=== PATIENT | female | born 1970 | race African-American/Black ===

== ENCOUNTER 2016-05-06 14:59 | Inpatient (IN) ==
--- NOTE | 2016-05-06 17:05 | EKG Report ---
Stationary ECG Study [facility] ER Test Date: 05/06/2016 5:04:14 PM Pat Name: DULCE LÓPEZ Department: Room: Gender: F Respiratory Care Specialist: : 1970 Requested by: Jack Barros Order Number: [id number] Reading MD: ELIZA PILLAI Intervals [place] Rate: 91 P: 28 WY: 168 QRS: 66 QRSD: 74 T: 64 QT: 358 QTc: 407 Interpretive Statements SINUS RHYTHM POSSIBLE LEFT ATRIAL ENLARGEMENT Electronically Signed On 05-07-16 21:57:02 PRODUCT INFO SPECIALIST by ELIZA PILLAI [email or web address]
[2016-05-06 17:11] LABS: Albumin 3.6 G/DL (3.4-5.0); Bilirubin,Total 0.6 MG/DL (0.2-1.0); Calcium 8.8 MG/DL (8.5-10.1); Magnesium 2.2 MG/DL (1.8-2.4); Osmolality,Calculated 282.8 MOS/KG (273-304); Potassium 4.1 MMOL/L (3.5-5.1)
--- NOTE | 2016-05-06 17:11 | XRay Report ---
Exam: XR chest 2V Indication: Shortness of breath, multifocal pneumonia Comparison study: 04/22/2014 Findings: Slight improved aeration is noted within the right upper lobe when compared to prior. However, there are still patchy perihilar and basilar interstitial airspace opacities noted which may represent a degree of pulmonary edema versus multifocal infectious/inflammatory infiltrates and basilar atelectasis. A small right pleural effusion is also suspected. There is no pneumothorax. Cardiac silhouette appears stable from prior. Impression: Slight improved aeration within the right upper lobe as compared to prior. Residual perihilar and basilar interstitial airspace opacities are nonspecific and may represent atelectasis although residual or recurrent multifocal infectious/inflammatory infiltrates remain a consideration. Small right pleural effusion also suspected. PROCEDURE INTERPRETED AT [facility] DEPARTMENT OF RADIOLOGY Final Report Signed by: Erwin Nur
[2016-05-06 17:36] LABS: Basophils % 0.3 % (0.0-0.8); Hematocrit 22.9 VOL% (35.7-47.0); Immature Granulocytes % 0.3 %; Immature Granulocytes Absolute 0.01 #; Lymphocytes % 27.7 % (21.3-54.2); Mean Corpuscular HGB Conc 23.6 GM/DL (32-36); Mean Corpuscular Hemoglobin 15 PG (27-34); Mean Corpuscular Volume 63.1 FL (87-102); Monocytes # 0.3 10*3/uL (0.11-0.8); Monocytes % 7.8 % (1.7-12.7); Neutrophils # 2.3 10*3/uL (1.4-7.4); Neutrophils % 63.9 % (38.7-73.9); Platelet Count 251 T/CUMM (130-400); Red Blood Count 3.63 MC/CUMM (3.8-5.5); Red Cell Distribution Width 25.2 % (9.3-17.3); White Blood Count 3.6 T/CUMM (4-12)
[2016-05-06 17:42] LABS: Hemoglobin 5.4 GM/DL (12.0-16.0)
--- NOTE | 2016-05-06 18:01 | Emergency Department Note ---
Silvina Pearson Brittany, am scribing for, and in the presence of, Jack Nash MD 16:38. Saad Pearson Phillip K, MD, personally performed the services described in this documentation, ascribed by Cindy Cool in my presence, and it is both accurate and complete [id number] . Arrival - Arrival Chief Complaint: Shortness of Breath Stated Complaint: swelling feet , sob, dry cough ED Nursing Triage Note: SOB, BLE edema, dry cough onset yesterday. Unable to lay flat. Mode of Arrival: Ambulatory Limitations: No Limitations Source: Patient Time Seen by Provider: 05/06/16 16:09 - History of Present Illness HPI Narrative: This is a 45 y/o black female,who presents to the ED with c/o dyspnea which started last night. She states she has had a dry cough for the past few days. She has had a low grade fever as well. She reports the SOB is worse when she lays down. Pt also complains of welling in both ankles. Pt has no other complaints/pain in the ED at this time. Pt has a PMHx of HTN and thyroid disorder. Pt denies a surgical Hx. Pt denies a family medical Hx. Pt denies a social Hx. patient has had a blood transfusion approximately 15 years ago according to her. Patient denies eating ronnie. Onset (ago): hour(s) (Started last night) Consistency: constant Severity: moderate Allergies/Adverse Reactions: Allergies Allergy/AdvReac Type Severity Reaction Status Date / Time No Known Allergies Allergy Unverified 05/06/16 15:26 Home Medications: Home Medications Medication Instructions Recorded Confirmed Type Metoprolol Tartrate 25 mg PO BID 05/06/16 05/06/16 History methIMAzole [Methimazole] 5 mg PO BID 05/06/16 05/06/16 History Review of System - Review of System 12 point system: reviewed and no additional remarkable complaints except as stated - Review of System Constitutional: Present: fever (Low grade fever) Respiratory: Present: cough (Dry cough ) Cardiovascular: Present: orthopnea, other (Dyspnea) Additional ROS comments: Swelling in the ankles Medical,Surgical,& Family Hx - Medical History Cardio: History of: Hypertension Endocrine: History of: Thyroid Disorder - Social History Smoking Status: Never smoker Frequency of Alcohol Use: Unknown Type of Drug Use: Unknown Exam Vital Signs: Vital Signs Temperature 99.1 F 05/06/16 16:16 Pulse Rate 97 H 05/06/16 17:39 Respiratory Rate 31 H 05/06/16 17:39 Blood Pressure 143/85 05/06/16 17:39 O2 Sat by Pulse Oximetry 99 05/06/16 17:39 - General General appearance: alert, in no apparent distress - Head Head exam: Present: atraumatic, normocephalic, normal inspection - Eye Eye exam: Present: other (Pale conjunctivia ) - ENT ENT exam: Present: other (Pale mucous membranes) - Neck Neck exam: Present: normal inspection, full ROM, trachea midline. Absent: tenderness, meningismus, lymphadenopathy, thyromegaly - Chest Chest inspection: Present: normal inspection, symmetric chest wall rise. Absent : tenderness, rash, abscess - Respiratory Respiratory exam: Present: rales (Bilateral Rales worse on the right), respiratory distress (mild) - Cardiovascular Cardiovascular exam: Present: normal rhythm, tachycardia, normal heart sounds. Absent: murmur, rubs, gallop, clicks, JVD - Abdominal Exam Abdominal exam: Present: soft, normal bowel sounds. Absent: distention, tenderness, guarding, rebound, rigidity - Rectal Exam Rectal exam: Present: deferred - Extremities Exam Extremities exam: Present: pedal edema (Trace of edema to the lower exremities) - Back Exam Back exam: Present: normal inspection, full ROM. Absent: tenderness, muscle spasm, rashes - Neurological Exam Neurological exam: Present: alert, oriented X3, CN II-XII intact. Absent: motor sensory deficit - Psychiatric Psychiatric exam: Present: normal affect, normal mood. Absent: depressed, agitated, anxious, flat affect, manic - Skin Skin exam: Present: warm, dry, intact, normal color. Absent: rash, cyanosis, diaphoresis, erythema, pallor, mottled Course Course Narrative: Patient discussed with the hospitalist who will admit for transfusion and further evaluation. Results - Labs CBC & BMP: 05/06/16 17:30 05/06/16 16:47 Lab Results: I have reviewed the patients labs Labs: Laboratory Tests 05/06/16 05/06/16 16:47 17:30 WBC 3.6 L RBC 3.63 L Hgb 5.4 L* Hct 22.9 L MCV 63.1 L MCH 15 L MCHC 23.6 L RDW 25.2 H Lymph # (Auto) 1.0 L Chloride 113 H Creatinine 0.50 L Albumin/Globulin Ratio 1.0 L - EKG EKG results: interpreted by ERMD, WNL, sinus rhythm - Diagnostic Findings Procedure: Chest x-ray: report reviewed by me (Slight improved aeration within the right upper lobe as compared to prior. Residual perihilar and basilar intersitital airspace opacities are nonspecific and may represent atelectasis although residual or recurrent multifocal infectious/inflammatory infiltrates remain a consideration. Small right pleural effusion also suspected. ) Disposition Clinical Impression: Community acquired pneumonia, Anemia, Dyspnea Case discussed with: patient Disposition: Still a Patient Condition: Guarded Additional Instructions: Admit to the hospitalist.
[2016-05-06] MEDS ORDERED: ONDANSETRON 4 MG/2 ML VIAL IV PRN (18:22)
[2016-05-06] MEDS ORDERED: ACETAMINOPHEN 325 MG TABLET PO PRN ×2 (18:22→18:27)
[2016-05-06] MEDS ORDERED: ZALEPLON 5 MG CAPSULE PO PRN (18:22)
[2016-05-06] MEDS ORDERED: ALBUTEROL 2.5 MG/3 ML NEB RESP TX PRN (18:22)
[2016-05-06] MEDS ORDERED: SODIUM CHLORIDE 0.9% 250 ML IV PRN (18:27)
[2016-05-06] MEDS ORDERED: FUROSEMIDE 20 MG/2 ML VIAL IV PRN (18:27)
[2016-05-06] MEDS ORDERED: diphenhydrAMINE CAP 25 MG CAPSULE PO PRN (18:27)
[2016-05-06] MEDS ORDERED: METOPROLOL TARTRATE 5 MG/5 ML VIAL IV STA (18:29)
[2016-05-06] MEDS ORDERED: ENOXAPARIN 40 MG/0.4 ML SYRINGE SUBCUT SCH (18:30)
[2016-05-06] MEDS ORDERED: LEVOFLOXACIN INJ 750 MG in PREMIX 1 EACH IV SCH (18:30)
--- NOTE | 2016-05-06 18:32 | Hospitalist History & Physical ---
Assessment and Plan - Time spent with patient Time spent with patient: Greater than 30 minutes (1) Sepsis Status: Acute Assessment and plan: Secondary to RLL pneumonia. Patient with low-grade fever, tachycardia, tachypnea, and rest x-ray suggestive of right lower lobe infiltrate. She's had a cough and shortness of breath 2 days. She is being treated with IV Levaquin and DuoNeb's. Consider steroids. Current Visit: Yes Qualifiers: Sepsis type: sepsis due to unspecified organism Qualified Code(s): A41.9 - Sepsis, unspecified organism (2) Community acquired pneumonia Status: Acute Assessment and plan: Patient with acute right lower lobe pneumonia with cough low-grade fever and tachypnea and tachycardia. She also has symptomatic anemia which is contributing to some of her symptoms. She'll be started on IV Levaquin as well as duo nebs. Consider steroids. And cough medication for symptom relief. Add pro calcitonin level. Current Visit: Yes (3) Anemia Status: Acute Assessment and plan: Acutely symptomatic with tachycardia and tachypnea. This is likely multifactorial and related to her pneumonia as well. Her hemoglobin is 5.4. She'll be transfused 2 units of packed red blood cells with repeat H&H in a.m. She gives a history of anemia but has not been taking iron supplementation. Routine anemia labs have been ordered and are pending. Current Visit: Yes Qualifiers: Anemia type: unspecified type Qualified Code(s): D64.9 - Anemia, unspecified (4) Hyperthyroidism Status: Chronic Assessment and plan: Patient on methimazole. Labs have been ordered. Unclear if some of her symptoms are related to hyperthyroidism including her tachycardia and hypertension. Current Visit: Yes (5) HTN (hypertension) Status: Chronic Assessment and plan: Continue beta florina and monitor blood pressure Current Visit: Yes Qualifiers: Hypertension type: essential hypertension Qualified Code(s): I10 - Essential (primary) hypertension (6) Dyspnea Status: Acute Current Visit: Yes History of Present Illness Chief complaint: Shortness of breath History of present illness: Ms. Cage is a 45 year old female who presented to the emergency department today with shortness of breath and cough. She reports her symptoms began yesterday. She felt like her feet were swollen. She was having difficulty breathing. She was found to have a low-grade fever in the emergency department. During the course of her evaluation and workup she was found to have right lower lobe pneumonia as well as severe anemia with a hemoglobin of 5. The patient reports a history of anemia but has not been taking any iron supplements. She denies any blood in her stools, hemoptysis or hematochezia. A Hemoccult was done in the emergency department and was negative. Patient is being admitted to the hospitalist service for symptomatic anemia with tachycardia as well as right lower lobe pneumonia with tachycardia and tachypnea and low-grade fever. The patient has signs and symptoms consistent with a diagnosis of sepsis secondary to pneumonia with an unknown organism. IV antibiotics have been started. The patient has not had any sick contacts. She has no recent hospitalizations. She has not been on any antibiotics recently. She denies any fever or chills at home. She reports her symptoms are sudden in onset and worsening. She reports some chest pain with cough that's generalized. She denies any syncope or anginal symptoms. Home Medications Medication Instructions Recorded Confirmed Type Metoprolol Tartrate 25 mg PO BID 05/06/16 05/06/16 History methIMAzole [Methimazole] 5 mg PO BID 05/06/16 05/06/16 History Allergies Allergy/AdvReac Type Severity Reaction Status Date / Time No Known Allergies Allergy Unverified 05/06/16 15:26 Medical,Surgical,& Family Hx - Medical History Cardio: History of: Hypertension Endocrine: History of: Thyroid Disorder - Surgical History Additional Surgical History: Denies surgeries - Family History Additional Family History: denies any FH - Social History Smoking Status: Never smoker Have you smoked in the last 12 months: No Frequency of Alcohol Use: Unknown Type of Drug Use: Unknown Functional capacity: independent ambulation 12 point system: reviewed and no additional remarkable complaints except as stated - Constitutional Constitutional: Present: as per HPI - Respiratory Respiratory: Present: cough, dyspnea, dyspnea on exertion, pain on inspiration Exam - Constitutional Vitals: Period Temp Pulse Resp BP Sys/Jack Pulse Ox Last 24 Hr 99.1 F-99.1 F 92-102 18-31 133-149/69-86 98-100 General appearance: normal weight, mild distress - Head Head exam: Present: normal inspection, normocephalic, atraumatic - Eye Eye exam: Present: EOMI Pupils: Present: JONATHON - ENT ENT exam: Present: normal exam, normal oropharynx - Neck Neck exam: Present: normal inspection. Absent: lymphadenopathy, tenderness - Respiratory Respiratory exam: Present: rhonchi (RLL) - Cardiovascular Cardiovascular exam: Present: tachycardia. Absent: diastolic murmur - GI/Abdominal GI/Abdominal exam: Present: normal bowel sounds, soft. Absent: tenderness, rebound - Extremities Exam Extremities exam: Absent: edema - Neurological Exam Neurological exam: Present: alert, oriented X3, CN II-XII intact - Psychiatric Psychiatric exam: Present: normal affect, anxious - Skin Skin exam: Present: normal color, warm, dry, pallor Results - Labs CBC & BMP: 05/06/16 17:30 05/06/16 16:47 Lab Results: I have reviewed the past 24 hour labs - Diagnostic Findings Procedure: Chest x-ray: image reviewed by me, report reviewed by me Sepsis - Sepsis Classification of Sepsis: Sepsis Possible / Suspected infection from: pneumonia - Physical Exam Respiratory exam: rhonchi Capillary Refill: Less Than 3 Seconds Peripheral pulses: Dorsalis Pedis (L) PM: 2+, Dorsalis Pedis (R) PM: 2+ Cardiovascular exam: tachycardia Skin exam: normal color
[2016-05-06] MEDS ORDERED: guaiFENesin/CODEINE 5 ML LIQUID PO PRN (18:39)
[2016-05-06 18:40] LABS: Eosinophils 1 % (0-10); Lymphocytes 26 % (20-55); Platelet Estimate Normal; Polychromasia Slight; Segmented Neutrophils 73 % (50-85); Total Cells Counted 100
[2016-05-06 18:41] LABS: Elliptocytes 1+; Hypochromasia 2+; Poikilocytosis 1+
[2016-05-06 18:43] LABS: Acanthocytes Few
[2016-05-06 19:07] LABS: Folate 14.1 NG/ML (5.4-24.0)
[2016-05-06 19:15] LABS: Ferritin 7.4 ng/ml (8-252)
[2016-05-06] MEDS: ALBUTEROL/IPRATROPIUM 3 ML NEB RESP TX SCH (21:14)
[2016-05-06 21:17] LABS: HIV Antigen/Antibody Result Nonreactive (Nonreactive)
[2016-05-06] MEDS: methIMAzole 5 MG TABLET PO SCH (22:23)
[2016-05-06] MEDS: METOPROLOL TARTRATE 25 MG TABLET PO SCH (22:23)
[2016-05-06 22:51] LABS: Apearance,Urine CLEAR (Clear); Bacteria,Urine Occasional /HPF (Few); Bilirubin,Urine Negative (Negative); Blood, Urine Small mg/dL (Negative); Glucose,Urine (UA) Negative (Negative); Ketones,Urine 5 mg/dL (Negative); Mucus,Urine Occasional /LPF (Occasional); Nitrite,Urine Negative (Negative); Protein,Urine 30 MG/DL; RBC,Urine 1 /HPF (0-4); Squamous Epithelial Cell,Urine Occasional /HPF (0-10); Urine Color Yellow (Yellow); Urine Specific Gravity 1.013 (1.001-1.035); Urine Urobilinogen < 2.0 EU/DL (0.2-1.0); WBC,Urine 1 /HPF (0-6)
[2016-05-06] MEDS ORDERED: INFLUENZA VIRUS VACCINE 0.5 ML SYRINGE IM ONE (23:43)
[2016-05-07] MEDS: ALBUTEROL/IPRATROPIUM 3 ML NEB RESP TX SCH ×2 (01:06→07:32)
[2016-05-07] MEDS: FUROSEMIDE 20 MG/2 ML VIAL IV PRN ×2 (01:28→05:20)
[2016-05-07] MEDS ORDERED: FUROSEMIDE 20 MG/2 ML VIAL IV PRN (06:00)
[2016-05-07 07:14] LABS: Basophils % 0.4 % (0.0-0.8); Eosinophils % 0.2 % (0.00-10.9); Hematocrit 30.1 VOL% (35.7-47.0); Immature Granulocytes % 0.4 %; Immature Granulocytes Absolute 0.02 #; Lymphocytes # 1.1 10*3/uL (1.4-4.0); Lymphocytes % 21.8 % (21.3-54.2); Mean Corpuscular HGB Conc 26.6 GM/DL (32-36); Mean Corpuscular Hemoglobin 18 PG (27-34); Mean Corpuscular Volume 67.3 FL (87-102); Monocytes # 0.3 10*3/uL (0.11-0.8); Monocytes % 6.9 % (1.7-12.7); NRBC # 0.02 10*3/uL; Neutrophils # 3.5 10*3/uL (1.4-7.4); Neutrophils % 70.3 % (38.7-73.9); Platelet Count 226 T/CUMM (130-400); Red Cell Distribution Width 28.1 % (9.3-17.3)
[2016-05-07 07:17] LABS: Red Blood Count 4.47 MC/CUMM (3.8-5.5); White Blood Count 4.9 T/CUMM (4-12)
[2016-05-07 07:28] LABS: Hypochromasia 1+; Platelet Estimate Normal
[2016-05-07 07:29] LABS: Elliptocytes 1+
[2016-05-07 07:32] LABS: Alanine Aminotransferase 12 U/L (13-56); Albumin 3.4 G/DL (3.4-5.0); Alkaline Phosphatase 89 U/L (45-117); Aspartate Amino Transferase 10 U/L (0-37); Blood Urea Nitrogen 6 MG/DL (7-18); Glucose 89 MG/DL (74-106); Osmolality,Calculated 284.7 MOS/KG (273-304); Potassium 3.5 MMOL/L (3.5-5.1); Sodium 145 MMOL/L (136-145); Thyroid Stimulating Hormone < 0.005 uIU/ml (0.358-3.74); Total Protein 6.5 G/DL (6.4-8.3)
[2016-05-07] MEDS: METOPROLOL TARTRATE 25 MG TABLET PO SCH (08:55)
[2016-05-07] MEDS: methIMAzole 5 MG TABLET PO SCH (08:55)
[2016-05-07] MEDS ORDERED: PANTOPRAZOLE 40 MG TABLET PO SCH (09:00)
--- NOTE | 2016-05-07 09:31 | Discharge Summary ---
<Natalie Godfrey - Last Filed: 05/07/16 09:28> Hospital Course - Hospital Course Hospital Course: Ms. Cage was admitted last night with a probable pneumonia, with tachycardia, cough. She has a history of hyperthyroidism which could be contributing to her symptoms. CXR could not rule out a pneumonia. She was treated with duonebs and Levaquin. She is on Methmizole for her hyperthyroidism. She was found to be severely anemic at 08/04 and was transfused 2 units PRBC's and her H/H this morning is 8. She does have a history of iron deficiency anemia, but has not been compliant with her supplements. She has improved and vitals and labs are stable to improved and she will be discharged home today on appropriate medications. - Time spent with patient Time with patient DS: Greater than 30 minutes (due to plan, doc and med rec) Diagnosis - Discharge Diagnosis (1) Anemia Status: Resolved (2) Community acquired pneumonia Status: Suspected (3) HTN (hypertension) Status: Chronic (4) Hyperthyroidism Status: Chronic Discharge Plan - Discharge Data Disposition: Disch To Home/Self Care - Discharge Medications New Levofloxacin Tab [Levaquin Tab] 500 mg PO DAILY #10 tablet Pantoprazole Tab [Protonix Tab] 40 mg PO DAILY #30 tablet guaiFENesin/CODEINE [Robitussin AC] 5 ml PO Q6H PRN #120 PRN Reason: Cough Continue Metoprolol Tartrate 25 mg PO BID methIMAzole [Methimazole] 5 mg PO BID - Follow Up or Referral - Forms/Instructions Exam - Constitutional Vitals: Period Temp Pulse Resp BP Sys/Jack Pulse Ox Last 24 Hr 97.4 F-98.7 F 87-112 16-30 103-143/62-97 93-100 Discharge Results Procedures and tests throughout hospitalization: Pending Orders 05/06/16 17:30 Procalcitonin, S Stat Transferrin Stat 05/06/16 18:22 Occult Blood, Stool Routine 05/06/16 18:26 Sputum Culture and Gram Stain Routine Labs on day of discharge: Labs from last 24 hours 05/07/16 05/07/16 05/07/16 06:36 06:36 06:36 WBC 4.9 D RBC 4.47 D Hgb 8.0 L D Hct 30.1 L MCV 67.3 L MCH 18 L MCHC 26.6 L RDW 28.1 H Plt Count 226 Neut % (Auto) 70.3 Lymph % (Auto) 21.8 [place] % (Auto) 6.9 Eos % (Auto) 0.2 Baso % (Auto) 0.4 Neut # (Auto) 3.5 Lymph # (Auto) 1.1 L [place] # (Auto) 0.3 Eos # (Auto) 0.0 Baso # (Auto) 0.0 Immature Gran % 0.4 Nucleated RBC % 0.4 Immature Gran # 0.02 Nucleated RBCs # 0.02 Platelet Estimate Normal Hypochromasia 1+ Elliptocytes 1+ Morphology Comment Sodium 145 Potassium 3.5 Chloride 110 H Carbon Dioxide 24 Anion Gap 14.5 BUN 6 L Creatinine 0.60 GFR Calculation 121 BUN/Creatinine Ratio 10.00 Glucose 89 Calculated Osmolality 284.7 Lactic Acid Calcium 9.0 Magnesium 2.0 Total Bilirubin 2.40 H AST 10 ALT 12 L Alkaline Phosphatase 89 Total Protein 6.5 Albumin 3.4 Globulin 3.1 Albumin/Globulin Ratio 1.0 L Free T4 2.26 H TSH 3rd Generation < 0.005 L Urine Color Urine Appearance Urine pH Ur Specific [place] Urine Protein Urine Glucose (UA) Urine Ketones Urine Blood Urine Nitrate Urine Bilirubin Urine Urobilinogen Urine Leukocytes Urine RBC Urine WBC Ur Squamous Epith Cells Urine Bacteria Urine Mucus Ur Culture Indicated? Blood Type Antibody Screen Crossmatch 05/06/16 05/06/16 05/06/16 22:15 21:11 18:31 WBC RBC Hgb Hct MCV MCH MCHC RDW Plt Count Neut % (Auto) Lymph % (Auto) [place] % (Auto) Eos % (Auto) Baso % (Auto) Neut # (Auto) Lymph # (Auto) [place] # (Auto) Eos # (Auto) Baso # (Auto) Immature Gran % Nucleated RBC % Immature Gran # Nucleated RBCs # Platelet Estimate Hypochromasia Elliptocytes Morphology Comment Sodium Potassium Chloride Carbon Dioxide Anion Gap BUN Creatinine GFR Calculation BUN/Creatinine Ratio Glucose Calculated Osmolality Lactic Acid 0.9 Calcium Magnesium Total Bilirubin AST ALT Alkaline Phosphatase Total Protein Albumin Globulin Albumin/Globulin Ratio Free T4 TSH 3rd Generation Urine Color Yellow Urine Appearance Clear Urine pH 7.0 Ur Specific [place] 1.013 Urine Protein 30 Urine Glucose (UA) Negative Urine Ketones 5 Urine Blood Small Urine Nitrate Negative Urine Bilirubin Negative Urine Urobilinogen < 2.0 H Urine Leukocytes Negative Urine RBC 1 Urine WBC 1 Ur Squamous Epith Cells Occasional Urine Bacteria Occasional Urine Mucus Occasional Ur Culture Indicated? Not indicated Blood Type O POSITIVE Antibody Screen Crossmatch 05/06/16 18:27 WBC RBC Hgb Hct MCV MCH MCHC RDW Plt Count Neut % (Auto) Lymph % (Auto) [place] % (Auto) Eos % (Auto) Baso % (Auto) Neut # (Auto) Lymph # (Auto) [place] # (Auto) Eos # (Auto) Baso # (Auto) Immature Gran % Nucleated RBC % Immature Gran # Nucleated RBCs # Platelet Estimate Hypochromasia Elliptocytes Morphology Comment Sodium Potassium Chloride Carbon Dioxide Anion Gap BUN Creatinine GFR Calculation BUN/Creatinine Ratio Glucose Calculated Osmolality Lactic Acid Calcium Magnesium Total Bilirubin AST ALT Alkaline Phosphatase Total Protein Albumin Globulin Albumin/Globulin Ratio Free T4 TSH 3rd Generation Urine Color Urine Appearance Urine pH Ur Specific [place] Urine Protein Urine Glucose (UA) Urine Ketones Urine Blood Urine Nitrate Urine Bilirubin Urine Urobilinogen Urine Leukocytes Urine RBC Urine WBC Ur Squamous Epith Cells Urine Bacteria Urine Mucus Ur Culture Indicated? Blood Type O POSITIVE Antibody Screen Negative Crossmatch See Detail DS: Provider Date of admission: 05/06/16 18:00 Primary care physician: . No PCP Attending physician on admission: Matthew Nguyen Jr., MD Discharging clinician: Natalie Godfrey NP Expected date of discharge: 05/07/16 <Matthew Nguyen Jr. - Last Filed: 05/07/16 09:37> Diagnosis - Discharge Diagnosis (1) Community acquired pneumonia Status: Suspected (2) Anemia Status: Resolved (3) Dyspnea Status: Resolved (4) HTN (hypertension) Status: Chronic Discharge Plan - Discharge Data Condition at Discharge: Stable Discharge Diet: advance to your usual diet Activity: resume usual activities as tolerated Hygiene: no restrictions - Forms/Instructions Additional Discharge Instructions: Follow with Dr. Carlos Manriquez in one week with CBC Exam - Constitutional General appearance: normal weight - Head Head exam: Present: normal inspection - Eye Eye exam: Present: EOMI - Respiratory Respiratory exam: Present: clear to auscultation bilaterally - Cardiovascular Cardiovascular exam: Present: regular rate and rhythm - GI/Abdominal GI/Abdominal exam: Present: normal bowel sounds - Extremities Exam Extremities exam: Present: normal inspection, full ROM - Neurological Exam Neurological exam: Present: alert, oriented X3, CN II-XII intact - Psychiatric Psychiatric exam: Present: normal affect - Skin Skin exam: Present: normal color
[2016-05-07 11:54] VITALS: BP 121/71
== END 2016-05-07 12:50 | disposition home or self-care (01) | DRG 195 ==
LOC: N.ED 14:59 → N.EDINP 18:00 → N.5E 19:30
PROVIDERS: ADMIT Internal Medicine Nephrology; ATTEND Internal Medicine Nephrology

== ENCOUNTER 2017-04-25 22:35 | Inpatient (IN) ==
[2017-04-25] MEDS ORDERED: MORPHINE 2 MG/1 ML SYRINGE IV STA (22:52)
[2017-04-25] MEDS ORDERED: SODIUM CHLORIDE 0.9% 1,000 ML IV STA (22:52)
[2017-04-25] MEDS ORDERED: ONDANSETRON 4 MG/2 ML VIAL IV STA (22:52)
[2017-04-25] MEDS ORDERED: MORPHINE 10 MG/1 ML VIAL ONE (23:21)
[2017-04-25] MEDS ORDERED: ONDANSETRON 4 MG/2 ML VIAL ONE (23:21)
[2017-04-26 00:09] LABS: Basophils % 0.3 % (0.0-0.8); Hematocrit 23.9 VOL% (35.7-47.0); Immature Granulocytes % 0.3 %; Immature Granulocytes Absolute 0.02 #; Lymphocytes # 1.4 10*3/uL (1.4-4.0); Lymphocytes % 21.5 % (21.3-54.2); Mean Corpuscular HGB Conc 25.1 GM/DL (32-36); Mean Corpuscular Hemoglobin 14 PG (27-34); Mean Corpuscular Volume 55.7 FL (87-102); Monocytes # 0.7 10*3/uL (0.11-0.8); Monocytes % 10.3 % (1.7-12.7); NRBC # 0.02 10*3/uL; Neutrophils # 4.3 10*3/uL (1.4-7.4); Neutrophils % 67.6 % (38.7-73.9); Platelet Count 195 T/CUMM (130-400); Red Blood Count 4.29 MC/CUMM (3.8-5.5); Red Cell Distribution Width 25.3 % (9.3-17.3); White Blood Count 6.4 T/CUMM (4-12)
[2017-04-26 00:29] LABS: Anisocytosis 2+; Hypochromasia 3+; Poikilocytosis 3+
[2017-04-26 00:30] LABS: Polychromasia Slight; Target Cells 1+
[2017-04-26 00:36] LABS: Alanine Aminotransferase 18 U/L (13-56); Albumin 3.4 G/DL (3.4-5.0); Alkaline Phosphatase 115 U/L (45-117); Aspartate Amino Transferase 27 U/L (0-37); Blood Urea Nitrogen 15 MG/DL (7-18); Calcium 8.7 MG/DL (8.5-10.1); Glucose 91 MG/DL (74-106); Osmolality,Calculated 283.1 MOS/KG (273-304); Potassium 4.1 MMOL/L (3.5-5.1); Sodium 142 MMOL/L (136-145); Total Protein 6.7 G/DL (6.4-8.3)
[2017-04-26 01:04] LABS: Apearance,Urine Slightly Hazy (Clear); Bilirubin,Urine Negative (Negative); Blood, Urine Moderate mg/dL (Negative); Glucose,Urine (UA) Negative (Negative); Hyaline Casts,Urine 3 /LPF (0-3); Ketones,Urine Negative (Negative); Mucus,Urine Few /LPF (Occasional); Nitrite,Urine Negative (Negative); Protein,Urine 30 MG/DL; RBC,Urine 1 /HPF (0-4); Squamous Epithelial Cell,Urine Occasional /HPF (0-10); Urine Color Yellow (Yellow); Urine Specific Gravity 1.018 (1.001-1.035); WBC,Urine 6 /HPF (0-6)
[2017-04-26] MEDS ORDERED: cefTRIAXone 1,000 MG in SODIUM CHLORIDE 0.9% 100 ML IV STA (03:06)
[2017-04-26] MEDS ORDERED: cefTRIAXone 1,000 MG VIAL ONE (03:59)
[2017-04-26] MEDS ORDERED: cefTRIAXone 1,000 MG in SODIUM CHLORIDE 0.9% 100 ML IV SCH (04:00)
[2017-04-26] MEDS ORDERED: MORPHINE 2 MG/1 ML SYRINGE IV STA (04:12)
[2017-04-26] MEDS ORDERED: SODIUM CHLORIDE 0.9% 1,000 ML IV PRN (04:20)
[2017-04-26] MEDS: SODIUM CHLORIDE 0.9% 1,000 ML IV SCH (04:43)
[2017-04-26 04:52] LABS: % Iron Saturation 4.1 % (18-50); Ferritin 5.5 ng/ml (8-252)
[2017-04-26 05:48] LABS: HIV Antigen/Antibody Result Nonreactive (Nonreactive)
[2017-04-26] MEDS: AZITHROMYCIN 250 MG TABLET PO SCH (14:10)
[2017-04-26] MEDS: ATENOLOL 25 MG TABLET PO SCH (14:10)
[2017-04-26] MEDS: ONDANSETRON 4 MG/2 ML VIAL IV PRN (17:10)
[2017-04-26 17:36] LABS: Hematocrit 29.5 VOL% (35.7-47.0)
[2017-04-26 17:37] LABS: Hemoglobin 8.1 GM/DL (12.0-16.0)
[2017-04-27] MEDS: cefTRIAXone 2,000 MG in SYRINGE 1 EACH IV SCH (04:28)
[2017-04-27] MEDS: MORPHINE 2 MG/1 ML SYRINGE IV PRN (07:04)
[2017-04-27] MEDS: SODIUM CHLORIDE 0.9% 1,000 ML IV SCH (09:52)
[2017-04-27] MEDS: ATENOLOL 25 MG TABLET PO SCH (09:57)
[2017-04-27] MEDS ORDERED: ATENOLOL 50 MG TABLET PO SCH (10:00)
[2017-04-27] MEDS: AZITHROMYCIN 250 MG TABLET PO SCH (10:01)
[2017-04-27] MEDS: ATENOLOL 50 MG TABLET PO SCH (10:07)
[2017-04-27] MEDS: FERROUS SULFATE 325 MG TABLET PO SCH (20:48)
[2017-04-28] MEDS: ONDANSETRON 4 MG/2 ML VIAL IV PRN (01:19)
[2017-04-28] MEDS: MORPHINE 2 MG/1 ML SYRINGE IV PRN (01:29)
[2017-04-28 05:30] LABS: Basophils % 0.3 % (0.0-0.8); Hematocrit 25.4 VOL% (35.7-47.0); Hemoglobin 7.1 GM/DL (12.0-16.0); Immature Granulocytes % 0.3 %; Immature Granulocytes Absolute 0.01 #; Lymphocytes # 1.7 10*3/uL (1.4-4.0); Lymphocytes % 44.4 % (21.3-54.2); Mean Corpuscular Hemoglobin 17 PG (27-34); Mean Corpuscular Volume 59.5 FL (87-102); Monocytes # 0.5 10*3/uL (0.11-0.8); Monocytes % 13.7 % (1.7-12.7); NRBC # 0.03 10*3/uL; Neutrophils # 1.6 10*3/uL (1.4-7.4); Neutrophils % 40.3 % (38.7-73.9); Platelet Count 143 T/CUMM (130-400); Potassium 3.2 MMOL/L (3.5-5.1); Red Blood Count 4.27 MC/CUMM (3.8-5.5); Red Cell Distribution Width 29.2 % (9.3-17.3); White Blood Count 3.9 T/CUMM (4-12)
[2017-04-28 05:48] LABS: Elliptocytes Few; Giant Platelets Few; Hypochromasia 2+; Platelet Estimate Normal
[2017-04-28] MEDS: cefTRIAXone 2,000 MG in SYRINGE 1 EACH IV SCH (05:48)
[2017-04-28] MEDS: AZITHROMYCIN 250 MG TABLET PO SCH (09:04)
[2017-04-28] MEDS: ATENOLOL 50 MG TABLET PO SCH (09:04)
[2017-04-28] MEDS: FERROUS SULFATE 325 MG TABLET PO SCH ×2 (09:04→20:57)
[2017-04-28] MEDS ORDERED: SODIUM CHLORIDE 0.9% 1,000 ML IV PRN (10:23)
[2017-04-28] MEDS ORDERED: ATENOLOL 25 MG TABLET PO SCH (10:26)
[2017-04-28] MEDS: POTASSIUM CHLORIDE 20 MEQ TABLET PO SCH (10:44)
[2017-04-28] MEDS: methIMAzole 10 MG TABLET PO SCH ×2 (15:00→20:56)
[2017-04-29] MEDS: ALBUTEROL/IPRATROPIUM 3 ML NEB RESP TX SCH ×3 (02:15→13:52)
[2017-04-29] MEDS: cefTRIAXone 2,000 MG in SYRINGE 1 EACH IV SCH (03:56)
[2017-04-29] MEDS: MORPHINE 2 MG/1 ML SYRINGE IV PRN (03:56)
[2017-04-29 05:43] LABS: Basophils % 0.4 % (0.0-0.8); Eosinophils % 0.2 % (0.00-10.9); Hemoglobin 10.1 GM/DL (12.0-16.0); Immature Granulocytes % 0.2 %; Immature Granulocytes Absolute 0.01 #; Lymphocytes # 1.9 10*3/uL (1.4-4.0); Lymphocytes % 32.4 % (21.3-54.2); Mean Corpuscular HGB Conc 29.7 GM/DL (32-36); Mean Corpuscular Hemoglobin 19 PG (27-34); Mean Corpuscular Volume 64.4 FL (87-102); Monocytes # 0.7 10*3/uL (0.11-0.8); Monocytes % 12.3 % (1.7-12.7); NRBC # 0.02 10*3/uL; Neutrophils # 3.1 10*3/uL (1.4-7.4); Neutrophils % 54.5 % (38.7-73.9); Platelet Count 143 T/CUMM (130-400); Red Blood Count 5.28 MC/CUMM (3.8-5.5); Red Cell Distribution Width 33.1 % (9.3-17.3); White Blood Count 5.7 T/CUMM (4-12)
[2017-04-29 06:10] LABS: Calcium 8.4 MG/DL (8.5-10.1); Osmolality,Calculated 281.1 MOS/KG (273-304)
[2017-04-29 06:17] LABS: Burr Cells Slight; Giant Platelets Few; Hypochromasia 2+; Ovalocytes Slight; Platelet Estimate Normal
[2017-04-29] MEDS: POTASSIUM CHLORIDE 20 MEQ TABLET PO SCH (09:52)
[2017-04-29] MEDS: FERROUS SULFATE 325 MG TABLET PO SCH (09:52)
[2017-04-29] MEDS: AZITHROMYCIN 250 MG TABLET PO SCH (09:52)
[2017-04-29] MEDS: methIMAzole 10 MG TABLET PO SCH (09:56)
[2017-04-29 12:19] VITALS: BP 133/81
== END 2017-04-29 16:46 | disposition home or self-care (01) | DRG 871 ==
LOC: N.ED 22:35 → N.EDINP 04-26 03:30 → N.TELEN 04-26 05:04

== ENCOUNTER 2018-04-25 06:01 | Inpatient (IN) ==
[2018-04-25] MEDS ORDERED: ONDANSETRON 4 MG/2 ML VIAL IV STA (06:34)
[2018-04-25] MEDS ORDERED: SODIUM CHLORIDE 0.9% 1,000 ML IV STA (06:34)
[2018-04-25] MEDS ORDERED: HYDROmorphone 2 MG/1 ML VIAL IV STA (06:34)
[2018-04-25 06:42] LABS: Basophils % 0.1 % (0.0-0.8); Hematocrit 34.2 VOL% (35.7-47.0); Hemoglobin 10.4 GM/DL (12.0-16.0); Immature Granulocytes % 0.3 %; Immature Granulocytes Absolute 0.03 #; Lymphocytes # 0.8 10*3/uL (1.4-4.0); Lymphocytes % 8.5 % (21.3-54.2); Mean Corpuscular HGB Conc 30.4 GM/DL (32-36); Mean Corpuscular Hemoglobin 23 PG (27-34); Mean Platelet Volume 11.4 FL (9.6-12.0); Monocytes # 0.6 10*3/uL (0.11-0.8); Monocytes % 6.4 % (1.7-12.7); Neutrophils # 7.4 10*3/uL (1.4-7.4); Neutrophils % 84.7 % (38.7-73.9); Platelet Count 197 T/CUMM (130-400); Red Blood Count 4.56 MC/CUMM (3.8-5.5); Red Cell Distribution Width 15.4 % (9.3-17.3); White Blood Count 8.8 T/CUMM (4-12)
[2018-04-25 07:06] LABS: Alanine Aminotransferase 32 U/L (13-56); Albumin 3.6 G/DL (3.4-5.0); Alkaline Phosphatase 145 U/L (45-117); Aspartate Amino Transferase 23 U/L (0-37); Blood Urea Nitrogen 10 MG/DL (7-18); Calcium 8.6 MG/DL (8.5-10.1); Glucose 108 MG/DL (74-106); Lipase < 50.0 U/L (73-393); Osmolality,Calculated 278.4 MOS/KG (273-304); Potassium 3.6 MMOL/L (3.5-5.1); Sodium 140 MMOL/L (136-145); Total Protein 7.3 G/DL (6.4-8.3)
[2018-04-25 07:50] LABS: Free T4 (Free Thyroxine) 3.79 NG/DL (0.76-1.46); Thyroid Stimulating Hormone < 0.005 uIU/ml (0.358-3.74)
[2018-04-25] MEDS ORDERED: PROPRANOLOL 20 MG TABLET PO STA (10:03)
[2018-04-25] MEDS ORDERED: cefTRIAXone 1,000 MG in SODIUM CHLORIDE 0.9% 100 ML IV STA (10:08)
[2018-04-25 11:00] LABS: Apearance,Urine CLEAR (Clear); Bacteria,Urine Occasional /HPF (Few); Bilirubin,Urine Negative (Negative); Blood, Urine Negative (Negative); Glucose,Urine (UA) Negative (Negative); Ketones,Urine 5 mg/dL (Negative); Mucus,Urine Occasional /LPF (Occasional); Nitrite,Urine Negative (Negative); Protein,Urine Negative; RBC,Urine 2 /HPF (0-4); Squamous Epithelial Cell,Urine Occasional /HPF (0-10); Urine Color Yellow (Yellow); Urine Specific Gravity 1.017 (1.001-1.035); WBC,Urine 1 /HPF (0-6)
[2018-04-25] MEDS ORDERED: AZITHROMYCIN 250 MG TABLET ONE (11:24)
[2018-04-25] MEDS: AZITHROMYCIN 250 MG TABLET PO SCH (11:28)
[2018-04-25] MEDS: methIMAzole 10 MG TABLET PO SCH ×2 (11:55→21:33)
[2018-04-25] MEDS ORDERED: PROMETHAZINE 25 MG/1 ML VIAL IM PRN (12:01)
[2018-04-25] MEDS ORDERED: ACETAMINOPHEN 325 MG TABLET PO PRN (12:01)
[2018-04-25] MEDS ORDERED: MORPHINE 4 MG/1 ML VIAL IV PRN (12:01)
[2018-04-25] MEDS ORDERED: ONDANSETRON 4 MG/2 ML VIAL IV PRN (12:01)
[2018-04-25] MEDS: SODIUM CHLORIDE 0.9% 1,000 ML IV SCH ×2 (12:41→23:01)
[2018-04-25] MEDS: ENOXAPARIN 40 MG/0.4 ML SYRINGE SUBCUT SCH (12:41)
[2018-04-25] MEDS ORDERED: INFLUENZA VIRUS VACCINE 0.5 ML SYRINGE IM ONE (15:57)
[2018-04-25] MEDS: METOPROLOL TARTRATE 50 MG TABLET PO SCH ×2 (16:15→21:34)
[2018-04-25] MEDS ORDERED: ALBUTEROL/IPRATROPIUM 3 ML NEB RESP TX SCH (19:00)
[2018-04-25] MEDS: ALBUTEROL/IPRATROPIUM 3 ML NEB RESP TX SCH (20:07)
[2018-04-26] MEDS: ALBUTEROL/IPRATROPIUM 3 ML NEB RESP TX SCH ×4 (01:33→19:31)
[2018-04-26 04:46] LABS: Basophils % 0.1 % (0.0-0.8); Calcium 8.3 MG/DL (8.5-10.1); Hematocrit 27.9 VOL% (35.7-47.0); Hemoglobin 8.5 GM/DL (12.0-16.0); Immature Granulocytes % 0.3 %; Immature Granulocytes Absolute 0.02 #; Lymphocytes # 0.8 10*3/uL (1.4-4.0); Lymphocytes % 11.2 % (21.3-54.2); Mean Corpuscular HGB Conc 30.5 GM/DL (32-36); Mean Corpuscular Hemoglobin 23 PG (27-34); Mean Platelet Volume 12.1 FL (9.6-12.0); Monocytes # 0.7 10*3/uL (0.11-0.8); Monocytes % 9.5 % (1.7-12.7); Neutrophils # 5.8 10*3/uL (1.4-7.4); Neutrophils % 78.9 % (38.7-73.9); Osmolality,Calculated 279.3 MOS/KG (273-304); Potassium 3.5 MMOL/L (3.5-5.1); Red Blood Count 3.72 MC/CUMM (3.8-5.5); Red Cell Distribution Width 15.9 % (9.3-17.3); Troponin I 0.018 NG/ML (0.00-0.045); White Blood Count 7.4 T/CUMM (4-12)
[2018-04-26 04:54] LABS: Platelet Count 139 T/CUMM (130-400)
[2018-04-26 05:09] LABS: Hypochromasia 1+; Ovalocytes Slight; Platelet Estimate Adequate
[2018-04-26] MEDS: SODIUM CHLORIDE 0.9% 1,000 ML IV SCH ×3 (08:06→16:06)
[2018-04-26] MEDS ORDERED: cefTRIAXone 1,000 MG in SYRINGE 1 EACH IV SCH (09:00)
[2018-04-26] MEDS: METOPROLOL TARTRATE 50 MG TABLET PO SCH ×2 (09:06→20:11)
[2018-04-26] MEDS: AZITHROMYCIN 250 MG TABLET PO SCH (09:06)
[2018-04-26] MEDS: methIMAzole 10 MG TABLET PO SCH ×3 (09:06→20:11)
[2018-04-26] MEDS: LOSARTAN 25 MG TABLET PO SCH (11:17)
[2018-04-26] MEDS: ENOXAPARIN 40 MG/0.4 ML SYRINGE SUBCUT SCH (12:20)
[2018-04-27] MEDS: ALBUTEROL/IPRATROPIUM 3 ML NEB RESP TX SCH ×4 (01:23→18:32)
[2018-04-27 04:57] LABS: Basophils % 0.2 % (0.0-0.8); Hematocrit 26.2 VOL% (35.7-47.0); Hemoglobin 7.9 GM/DL (12.0-16.0); Immature Granulocytes % 0.4 %; Immature Granulocytes Absolute 0.02 #; Lymphocytes # 1.1 10*3/uL (1.4-4.0); Lymphocytes % 20.8 % (21.3-54.2); Mean Corpuscular HGB Conc 30.2 GM/DL (32-36); Mean Corpuscular Hemoglobin 23 PG (27-34); Mean Corpuscular Volume 74.6 FL (87-102); Mean Platelet Volume 11.4 FL (9.6-12.0); Monocytes # 0.5 10*3/uL (0.11-0.8); Monocytes % 10.2 % (1.7-12.7); Neutrophils # 3.6 10*3/uL (1.4-7.4); Neutrophils % 68.4 % (38.7-73.9); Platelet Count 135 T/CUMM (130-400); Red Blood Count 3.51 MC/CUMM (3.8-5.5); Red Cell Distribution Width 15.9 % (9.3-17.3); White Blood Count 5.2 T/CUMM (4-12)
[2018-04-27 05:23] LABS: Osmolality,Calculated 272.5 MOS/KG (273-304); Potassium 3.4 MMOL/L (3.5-5.1)
[2018-04-27] MEDS ORDERED: ACETAMINOPHEN 325 MG TABLET PO PRN (07:50)
[2018-04-27] MEDS ORDERED: POTASSIUM CHLORIDE 20 MEQ TABLET PO ONE (08:06)
[2018-04-27] MEDS ORDERED: cefTRIAXone 2,000 MG in SYRINGE 1 EACH IV SCH (09:00)
[2018-04-27] MEDS: METOPROLOL TARTRATE 50 MG TABLET PO SCH ×2 (09:19→20:38)
[2018-04-27] MEDS: methIMAzole 10 MG TABLET PO SCH ×3 (09:19→20:39)
[2018-04-27] MEDS: AZITHROMYCIN 250 MG TABLET PO SCH (09:20)
[2018-04-27] MEDS: LOSARTAN 25 MG TABLET PO SCH (09:24)
[2018-04-27] MEDS: SODIUM CHLORIDE 0.9% 1,000 ML IV SCH (09:34)
[2018-04-27] MEDS ORDERED: diphenhydrAMINE 50 MG/1 ML VIAL IV ONE (09:57)
[2018-04-27] MEDS ORDERED: methylPREDNISolone SOD SUC 125 MG/2 ML VIAL IV ONE (09:57)
[2018-04-27] MEDS ORDERED: diphenhydrAMINE 50 MG/1 ML VIAL ONE (10:00)
[2018-04-27] MEDS ORDERED: methylPREDNISolone SOD SUC 125 MG/2 ML VIAL ONE (10:00)
[2018-04-27] MEDS ORDERED: FAMOTIDINE 20 MG TABLET PO ONE (10:05)
[2018-04-27] MEDS ORDERED: diphenhydrAMINE CAP 25 MG CAPSULE PO ONE (10:06)
[2018-04-27] MEDS ORDERED: diphenhydrAMINE CAP 25 MG CAPSULE ONE (10:09)
[2018-04-27] MEDS: ENOXAPARIN 40 MG/0.4 ML SYRINGE SUBCUT SCH (13:18)
[2018-04-27] MEDS: LEVOFLOXACIN INJ 750 MG in PREMIX 1 EACH IV SCH (15:09)
[2018-04-27] MEDS: guaiFENesin/DM ER 600-30 MG TABLET PO SCH (20:39)
[2018-04-28] MEDS: ALBUTEROL/IPRATROPIUM 3 ML NEB RESP TX SCH ×4 (01:10→19:20)
[2018-04-28 04:04] LABS: Hematocrit 28.6 VOL% (35.7-47.0); Hemoglobin 8.6 GM/DL (12.0-16.0); Immature Granulocytes % 0.4 %; Immature Granulocytes Absolute 0.02 #; Lymphocytes # 0.5 10*3/uL (1.4-4.0); Lymphocytes % 8.8 % (21.3-54.2); Mean Corpuscular HGB Conc 30.1 GM/DL (32-36); Mean Corpuscular Hemoglobin 23 PG (27-34); Mean Corpuscular Volume 75.1 FL (87-102); Mean Platelet Volume 11.9 FL (9.6-12.0); Monocytes # 0.2 10*3/uL (0.11-0.8); Neutrophils # 4.6 10*3/uL (1.4-7.4); Neutrophils % 86.8 % (38.7-73.9); Platelet Count 143 T/CUMM (130-400); Red Blood Count 3.81 MC/CUMM (3.8-5.5); Red Cell Distribution Width 15.9 % (9.3-17.3); White Blood Count 5.3 T/CUMM (4-12)
[2018-04-28 04:19] LABS: Calcium 8.9 MG/DL (8.5-10.1); Potassium 3.3 MMOL/L (3.5-5.1)
[2018-04-28 04:38] LABS: Platelet Estimate Normal; Polychromasia Few
[2018-04-28] MEDS ORDERED: ASPIRIN CHEW 81 MG TABLET PO ONE (05:18)
[2018-04-28] MEDS ORDERED: NITROGLYCERIN SL 0.4 MG TABLET SL PRN (05:18)
[2018-04-28] MEDS ORDERED: MORPHINE 4 MG/1 ML VIAL IV PRN (05:18)
[2018-04-28] MEDS ORDERED: ASPIRIN EC 325 MG TABLET PO ONE (05:20)
[2018-04-28] MEDS ORDERED: NITROGLYCERIN SL 0.4 MG TABLET SL ONE (05:23)
[2018-04-28] MEDS ORDERED: CLORAZEPATE 7.5 MG TABLET PO ONE (05:33)
[2018-04-28 05:38] LABS: Hematocrit 28.7 VOL% (35.7-47.0); Hemoglobin 8.8 GM/DL (12.0-16.0); Immature Granulocytes % 0.4 %; Immature Granulocytes Absolute 0.03 #; Lymphocytes # 0.7 10*3/uL (1.4-4.0); Lymphocytes % 8.7 % (21.3-54.2); Mean Corpuscular HGB Conc 30.7 GM/DL (32-36); Mean Corpuscular Hemoglobin 23 PG (27-34); Mean Corpuscular Volume 74.4 FL (87-102); Mean Platelet Volume 11.2 FL (9.6-12.0); Monocytes # 0.3 10*3/uL (0.11-0.8); Monocytes % 4.3 % (1.7-12.7); Neutrophils # 6.6 10*3/uL (1.4-7.4); Neutrophils % 86.6 % (38.7-73.9); Platelet Count 158 T/CUMM (130-400); Red Blood Count 3.86 MC/CUMM (3.8-5.5); Red Cell Distribution Width 15.9 % (9.3-17.3); White Blood Count 7.6 T/CUMM (4-12)
[2018-04-28 06:00] LABS: Bilirubin,Total 0.6 MG/DL (0.2-1.0); Calcium 9.1 MG/DL (8.5-10.1); Osmolality,Calculated 282.3 MOS/KG (273-304); Potassium 3.4 MMOL/L (3.5-5.1); Total Protein 7.4 G/DL (6.4-8.3)
[2018-04-28] MEDS ORDERED: POTASSIUM CHLORIDE 20 MEQ TABLET PO ONE ×2 (06:27→15:00)
[2018-04-28] MEDS ORDERED: FUROSEMIDE 20 MG/2 ML VIAL IV ONE (06:30)
[2018-04-28] MEDS: methIMAzole 10 MG TABLET PO SCH ×3 (09:46→20:17)
[2018-04-28] MEDS: METOPROLOL TARTRATE 100 MG TABLET PO SCH ×2 (10:47→20:18)
[2018-04-28] MEDS: LEVOFLOXACIN INJ 750 MG in PREMIX 1 EACH IV SCH (15:44)
[2018-04-28] MEDS: SPIRONOLACTONE 25 MG TABLET PO SCH ×2 (15:45→20:17)
[2018-04-28] MEDS: ENOXAPARIN 40 MG/0.4 ML SYRINGE SUBCUT SCH (15:45)
[2018-04-28] MEDS: LOSARTAN 50 MG TABLET PO SCH (15:46)
[2018-04-28] MEDS: guaiFENesin/DM ER 600-30 MG TABLET PO SCH ×2 (15:47→20:18)
[2018-04-28] MEDS ORDERED: ALPRAZolam 0.5 MG TABLET PO PRN (18:24)
[2018-04-29] MEDS: ALBUTEROL/IPRATROPIUM 3 ML NEB RESP TX SCH ×2 (00:39→07:00)
[2018-04-29 04:51] LABS: Basophils % 0.1 % (0.0-0.8); Eosinophils % 0.1 % (0.00-10.9); Hematocrit 30.1 VOL% (35.7-47.0); Immature Granulocytes % 0.6 %; Immature Granulocytes Absolute 0.05 #; Lymphocytes # 1.5 10*3/uL (1.4-4.0); Lymphocytes % 19.7 % (21.3-54.2); Mean Corpuscular HGB Conc 29.9 GM/DL (32-36); Mean Corpuscular Hemoglobin 23 PG (27-34); Mean Corpuscular Volume 75.6 FL (87-102); Mean Platelet Volume 11.5 FL (9.6-12.0); Monocytes # 0.5 10*3/uL (0.11-0.8); Monocytes % 5.8 % (1.7-12.7); Neutrophils # 5.7 10*3/uL (1.4-7.4); Neutrophils % 73.7 % (38.7-73.9); Platelet Count 188 T/CUMM (130-400); Red Blood Count 3.98 MC/CUMM (3.8-5.5); Red Cell Distribution Width 16.6 % (9.3-17.3); White Blood Count 7.8 T/CUMM (4-12)
[2018-04-29 05:07] LABS: Calcium 8.5 MG/DL (8.5-10.1); Potassium 3.3 MMOL/L (3.5-5.1)
[2018-04-29 05:17] LABS: Folate 10.6 NG/ML (5.4-24.0)
[2018-04-29 05:26] LABS: Ferritin 38.2 ng/ml (8-252)
[2018-04-29] MEDS ORDERED: MAGNESIUM SULF RIDER 2 GM in PREMIX 1 EACH IV ONE (06:49)
[2018-04-29] MEDS: LOSARTAN 50 MG TABLET PO SCH (08:45)
[2018-04-29] MEDS: methIMAzole 10 MG TABLET PO SCH (08:46)
[2018-04-29] MEDS: METOPROLOL TARTRATE 100 MG TABLET PO SCH (08:46)
[2018-04-29] MEDS: SPIRONOLACTONE 25 MG TABLET PO SCH (08:46)
[2018-04-29] MEDS: guaiFENesin/DM ER 600-30 MG TABLET PO SCH (08:46)
[2018-04-29 12:36] VITALS: BP 112/60
== END 2018-04-29 12:35 | disposition home or self-care (01) | DRG 193 ==
LOC: N.ED 06:01 → N.EDINP 10:52 → SUATTDRO 10:52 → N.CC 15:17 → N.4E 04-26 23:17
PROVIDERS: ADMIT Internal Medicine; ATTEND Family Medicine

== ENCOUNTER 2019-10-08 04:18 | Inpatient (IN) ==
[2019-10-08 05:30] LABS: Immature Granulocytes % 0.3 %; Immature Granulocytes Absolute 0.01 #; Lymphocytes # 0.8 10*3/uL (1.4-4.0); Lymphocytes % 22.6 % (21.3-54.2); Mean Corpuscular HGB Conc 27.3 GM/DL (32-36); Mean Corpuscular Volume 90.5 FL (87-102); Mean Platelet Volume 11.6 FL (9.6-12.0); Monocytes % 7.2 % (1.7-12.7); Neutrophils % 69.9 % (38.7-73.9); Platelet Count 207 T/CUMM (130-400); Red Blood Count 1.58 MC/CUMM (3.8-5.5); Red Cell Distribution Width 17.2 % (9.3-17.3); White Blood Count 3.5 T/CUMM (4-12)
[2019-10-08 05:35] LABS: Hemoglobin 3.9 GM/DL (12.0-16.0)
[2019-10-08 05:36] LABS: Hematocrit 14.3 VOL% (35.7-47.0)
[2019-10-08 06:14] LABS: Alanine Aminotransferase 11 U/L (13-56); Albumin 2.7 G/DL (3.4-5.0); Alkaline Phosphatase 58 U/L (45-117); Aspartate Amino Transferase 15 U/L (0-37); Bilirubin,Total < 0.39 MG/DL (0.2-1.0); Blood Urea Nitrogen 13 MG/DL (7-18); Calcium 8.2 MG/DL (8.5-10.1); Estimated Glom Filtration Rate 58 ML/MIN; Glucose 96 MG/DL (74-106); Osmolality,Calculated 280.3 MOS/KG (273-304); Total Protein 6.3 G/DL (6.4-8.3)
[2019-10-08 06:24] LABS: Apearance,Urine CLEAR (Clear); Bilirubin,Urine Negative (Negative); Blood, Urine Small mg/dL (Negative); Glucose,Urine (UA) Negative (Negative); Hyaline Casts,Urine 1 /LPF (0-3); Ketones,Urine Negative (Negative); Mucus,Urine Occasional /LPF (Occasional); Nitrite,Urine Negative (Negative); Protein,Urine Negative; RBC,Urine 18 /HPF (0-4); Squamous Epithelial Cell,Urine Occasional /HPF (0-10); Urine Color Yellow (Yellow); Urine Specific Gravity 1.016 (1.001-1.035); Urine Urobilinogen < 2.0 EU/DL (0.2-1.0); WBC,Urine 2 /HPF (0-6)
[2019-10-08 07:15] LABS: Free T4 (Free Thyroxine) 0.78 NG/DL (0.76-1.46); Thyroid Stimulating Hormone 3.88 uIU/ml (0.358-3.74)
[2019-10-08] MEDS ORDERED: SODIUM CHLORIDE 0.9% 1,000 ML IV PRN (07:28)
[2019-10-08 07:32] LABS: Hypochromasia 3+; Lymphocytes 30 % (20-55); Microcytosis 1+; Nucleated Red Blood Cells 1 (0-5); Ovalocytes Slight; Platelet Estimate Adequate; Segmented Neutrophils 66 % (50-85); Total Cells Counted 100
[2019-10-08] MEDS ORDERED: LACTATED RINGERS 2,000 ML IV ONE (08:18)
[2019-10-08] MEDS: methIMAzole 10 MG TABLET PO SCH (10:15)
[2019-10-08] MEDS ORDERED: ONDANSETRON 4 MG/2 ML VIAL IV PRN (13:59)
[2019-10-08] MEDS ORDERED: ALUMINUM/MAGNES/SIMETH MAX STR 30 ML UDCUP PO PRN (13:59)
[2019-10-08] MEDS: METOPROLOL TARTRATE 50 MG TABLET PO SCH ×2 (17:15→22:30)
[2019-10-09 04:17] LABS: Hematocrit 18.7 VOL% (35.7-47.0); Immature Granulocytes % 0.3 %; Immature Granulocytes Absolute 0.01 #; Lymphocytes # 0.7 10*3/uL (1.4-4.0); Lymphocytes % 19.9 % (21.3-54.2); Mean Corpuscular HGB Conc 29.9 GM/DL (32-36); Mean Corpuscular Volume 84.6 FL (87-102); Mean Platelet Volume 10.8 FL (9.6-12.0); Monocytes % 6.9 % (1.7-12.7); Neutrophils % 72.9 % (38.7-73.9); Platelet Count 170 T/CUMM (130-400); Red Blood Count 2.21 MC/CUMM (3.8-5.5); Red Cell Distribution Width 16.4 % (9.3-17.3); White Blood Count 3.6 T/CUMM (4-12)
[2019-10-09 04:34] LABS: Hemoglobin 5.6 GM/DL (12.0-16.0)
[2019-10-09 05:00] LABS: Blood Urea Nitrogen 7 MG/DL (7-18); Calcium 8.1 MG/DL (8.5-10.1); Estimated Glom Filtration Rate 109 ML/MIN; Glucose 85 MG/DL (74-106); Osmolality,Calculated 277.3 MOS/KG (273-304); Troponin I < 0.015 NG/ML (0.00-0.045)
[2019-10-09] MEDS ORDERED: SODIUM CHLORIDE 0.9% 1,000 ML IV PRN (05:53)
[2019-10-09] MEDS: METOPROLOL TARTRATE 50 MG TABLET PO SCH ×2 (08:49→21:42)
[2019-10-09] MEDS: methIMAzole 10 MG TABLET PO SCH (08:51)
[2019-10-09] MEDS: PANTOPRAZOLE 40 MG TABLET PO SCH (08:51)
[2019-10-09 16:50] LABS: Hematocrit 25.2 VOL% (35.7-47.0)
[2019-10-09 16:53] LABS: Hemoglobin 7.8 GM/DL (12.0-16.0)
[2019-10-10 05:09] LABS: Hematocrit 27.4 VOL% (35.7-47.0); Hemoglobin 8.6 GM/DL (12.0-16.0); Immature Granulocytes % 0.2 %; Immature Granulocytes Absolute 0.01 #; Lymphocytes # 1.2 10*3/uL (1.4-4.0); Lymphocytes % 22.8 % (21.3-54.2); Mean Corpuscular HGB Conc 31.4 GM/DL (32-36); Monocytes % 7.7 % (1.7-12.7); Neutrophils % 69.3 % (38.7-73.9); Platelet Count 214 T/CUMM (130-400); Red Blood Count 3.26 MC/CUMM (3.8-5.5); Red Cell Distribution Width 16.1 % (9.3-17.3); White Blood Count 5.2 T/CUMM (4-12)
[2019-10-10 05:34] LABS: Calcium 8.2 MG/DL (8.5-10.1); Osmolality,Calculated 277.3 MOS/KG (273-304)
[2019-10-10] MEDS: PANTOPRAZOLE 40 MG TABLET PO SCH (10:50)
[2019-10-10] MEDS: METOPROLOL TARTRATE 50 MG TABLET PO SCH ×2 (10:50→21:16)
[2019-10-10] MEDS: methIMAzole 10 MG TABLET PO SCH (10:50)
[2019-10-10] MEDS ORDERED: SODIUM CHLORIDE 0.9% 1,000 ML IV PRN (11:43)
[2019-10-11 05:24] LABS: Hematocrit 30.7 VOL% (35.7-47.0); Hemoglobin 9.2 GM/DL (12.0-16.0); Immature Granulocytes % 0.2 %; Immature Granulocytes Absolute 0.01 #; Lymphocytes # 1.4 10*3/uL (1.4-4.0); Lymphocytes % 27.6 % (21.3-54.2); Mean Corpuscular Volume 87.2 FL (87-102); Mean Platelet Volume 11.4 FL (9.6-12.0); Neutrophils % 64.2 % (38.7-73.9); Platelet Count 254 T/CUMM (130-400); Red Blood Count 3.52 MC/CUMM (3.8-5.5); White Blood Count 5.1 T/CUMM (4-12)
[2019-10-11] MEDS: PANTOPRAZOLE 40 MG TABLET PO SCH (08:49)
[2019-10-11] MEDS: methIMAzole 10 MG TABLET PO SCH (08:49)
[2019-10-11] MEDS: METOPROLOL TARTRATE 50 MG TABLET PO SCH ×2 (08:49→21:06)
[2019-10-11] MEDS: ESTROGENS(CONJ) 25 MG VIAL IV SCH (13:30)
[2019-10-12] MEDS: ESTROGENS(CONJ) 25 MG VIAL IV SCH (00:57)
[2019-10-12 07:06] LABS: Hematocrit 25.9 VOL% (35.7-47.0); Immature Granulocytes % 0.4 %; Immature Granulocytes Absolute 0.02 #; Lymphocytes # 1.4 10*3/uL (1.4-4.0); Lymphocytes % 24.5 % (21.3-54.2); Mean Corpuscular HGB Conc 30.1 GM/DL (32-36); Mean Corpuscular Volume 87.5 FL (87-102); Mean Platelet Volume 11.3 FL (9.6-12.0); Monocytes % 7.4 % (1.7-12.7); Neutrophils % 67.7 % (38.7-73.9); Platelet Count 220 T/CUMM (130-400); Red Blood Count 2.96 MC/CUMM (3.8-5.5); Red Cell Distribution Width 15.9 % (9.3-17.3); White Blood Count 5.6 T/CUMM (4-12)
[2019-10-12 07:08] LABS: Hemoglobin 7.8 GM/DL (12.0-16.0)
[2019-10-12] MEDS ORDERED: SODIUM CHLORIDE 0.9% 1,000 ML IV PRN ×2 (07:13→11:15)
[2019-10-12] MEDS: methIMAzole 10 MG TABLET PO SCH (09:02)
[2019-10-12] MEDS: METOPROLOL TARTRATE 50 MG TABLET PO SCH ×2 (09:02→21:36)
[2019-10-12] MEDS: PANTOPRAZOLE 40 MG TABLET PO SCH (09:02)
[2019-10-12] MEDS ORDERED: ESTROGENS(CONJ) 25 MG VIAL IV ONE (12:00)
[2019-10-12] MEDS ORDERED: MELATONIN 3 MG TABLET PO PRN (15:40)
[2019-10-12] MEDS: CITALOPRAM 20 MG TABLET PO SCH (16:18)
[2019-10-13] MEDS ORDERED: ACETAMINOPHEN 325 MG TABLET PO PRN (00:02)
[2019-10-13 00:03] LABS: Hematocrit 31.2 VOL% (35.7-47.0)
[2019-10-13 00:05] LABS: Hemoglobin 9.6 GM/DL (12.0-16.0)
[2019-10-13 06:27] LABS: Hemoglobin 9.8 GM/DL (12.0-16.0); Immature Granulocytes % 0.2 %; Immature Granulocytes Absolute 0.01 #; Lymphocytes # 1.1 10*3/uL (1.4-4.0); Lymphocytes % 22.3 % (21.3-54.2); Mean Corpuscular HGB Conc 31.6 GM/DL (32-36); Mean Corpuscular Volume 84.5 FL (87-102); Mean Platelet Volume 10.7 FL (9.6-12.0); Neutrophils % 69.5 % (38.7-73.9); Platelet Count 202 T/CUMM (130-400); Red Blood Count 3.67 MC/CUMM (3.8-5.5); Red Cell Distribution Width 15.4 % (9.3-17.3); White Blood Count 4.9 T/CUMM (4-12)
[2019-10-13 06:50] LABS: Calcium 8.3 MG/DL (8.5-10.1); Osmolality,Calculated 276.4 MOS/KG (273-304)
[2019-10-13] MEDS ORDERED: POTASSIUM CHLORIDE 20 MEQ TABLET PO ONE (07:36)
[2019-10-13] MEDS: PANTOPRAZOLE 40 MG TABLET PO SCH (08:12)
[2019-10-13] MEDS: CITALOPRAM 20 MG TABLET PO SCH (08:12)
[2019-10-13] MEDS: METOPROLOL TARTRATE 50 MG TABLET PO SCH (08:12)
[2019-10-13] MEDS: methIMAzole 10 MG TABLET PO SCH (08:12)
[2019-10-13 12:44] VITALS: BP 135/72
== END 2019-10-13 12:51 | disposition home or self-care (01) | DRG 760 ==
LOC: N.ED 04:18 → N.EDINP 08:13 → SUATTDRO 08:13 → N.ICU 08:38 → N.3E 10-09 15:15
PROVIDERS: ADMIT Internal Medicine; ATTEND Internal Medicine

== ENCOUNTER 2019-10-17 05:28 | Inpatient (IN) ==
[2019-10-14 12:03] LABS: INR 1.1; PT Patient Result 11.4 SECS (9.8-11.9); Partial Thromboplastin Time 31.7 SECS (23.9-33.8)
[2019-10-17] MEDS ORDERED: CLINDAMYCIN INJ 900 MG in PREMIX 1 EACH IV ONE (06:00)
[2019-10-17] MEDS ORDERED: LEVOFLOXACIN INJ 750 MG in PREMIX 1 EACH IV ONE (06:00)
[2019-10-17] MEDS ORDERED: LACTATED RINGERS 1,000 ML IV SCH (06:30)
[2019-10-17] MEDS ORDERED: ACETAMINOPHEN 500 MG TABLET PO ONE (06:31)
[2019-10-17] MEDS ORDERED: LEVOFLOXACIN INJ 150 ML IV ONE (06:36)
[2019-10-17] MEDS ORDERED: CLINDAMYCIN INJ 50 ML IV ONE (06:36)
[2019-10-17] MEDS ORDERED: ACETAMINOPHEN 500 MG TABLET ONE (06:36)
[2019-10-17] MEDS ORDERED: ROPIVACAINE 0.5% 30 ML VIAL ONE (06:39)
[2019-10-17] MEDS ORDERED: SCOPOLAMINE 1.5 MG PATCH TRANSDERM ONE (06:39)
[2019-10-17] MEDS ORDERED: DEXAMETHASONE 4 MG/1 ML VIAL ONE ×2 (06:39→09:28)
[2019-10-17] MEDS ORDERED: LIDOCAINE 2% 5 ML VIAL ONE ×2 (06:39→09:27)
[2019-10-17] MEDS ORDERED: SODIUM CHLORIDE 0.9% 1,000 ML IV PRN (08:00)
[2019-10-17] MEDS ORDERED: HYDROmorphone 2 MG/1 ML VIAL ONE (09:03)
[2019-10-17] MEDS ORDERED: ONDANSETRON 4 MG/2 ML VIAL IV PRN (09:21)
[2019-10-17] MEDS ORDERED: ACETAMINOPHEN 325 MG TABLET PO PRN (09:21)
[2019-10-17] MEDS ORDERED: BENZOCAINE/MENTHOL LOZENGE 18/BOX PO PRN (09:21)
[2019-10-17] MEDS ORDERED: BISACODYL 10 MG SUPP RECTAL PRN (09:21)
[2019-10-17] MEDS ORDERED: propofoL 200 MG/20 ML VIAL IV ONE (09:27)
[2019-10-17] MEDS ORDERED: ALBUMIN 5% 12.5 GM/250 ML VIAL IV ONE (09:27)
[2019-10-17] MEDS ORDERED: NEOSTIGMINE 10 MG/10 ML VIAL ONE (09:28)
[2019-10-17] MEDS ORDERED: SEVOFLURANE 1 UNIT/15 MINUTE INH ONE (09:28)
[2019-10-17] MEDS ORDERED: GLYCOPYRROLATE 0.4 MG/2 ML VIAL ONE (09:28)
[2019-10-17] MEDS ORDERED: PHENYLEPHRINE 1 MG/10 ML SYRINGE IV ONE (09:28)
[2019-10-17] MEDS ORDERED: MIDAZOLAM 2 MG/2 ML VIAL ONE (09:28)
[2019-10-17] MEDS ORDERED: fentaNYL 100 MCG/2 ML VIAL ONE (09:28)
[2019-10-17] MEDS ORDERED: ROCURONIUM 100 MG/10 ML VIAL IV ONE (09:28)
[2019-10-17 09:37] LABS: Apearance,Urine CLEAR (Clear); Bilirubin,Urine Negative (Negative); Blood, Urine Large mg/dL (Negative); Glucose,Urine (UA) Negative (Negative); Ketones,Urine Negative (Negative); Mucus,Urine Many /LPF (Occasional); Nitrite,Urine Negative (Negative); Protein,Urine 100 MG/DL; RBC,Urine 1 /HPF (0-4); Urine Color Amber (Yellow); Urine Specific Gravity 1.026 (1.001-1.035); WBC,Urine 3 /HPF (0-6)
[2019-10-17] MEDS ORDERED: HYDROmorphone 2 MG/1 ML VIAL IV ONE (11:18)
[2019-10-17] MEDS: LACTATED RINGERS 1,000 ML IV SCH (11:42)
[2019-10-17] MEDS ORDERED: CLINDAMYCIN INJ 900 MG in PREMIX 1 EACH IV SCH (15:21)
[2019-10-17] MEDS: oxyCODONE/ACETAMINOPHEN 5-325 MG TABLET PO PRN ×2 (15:38→21:55)
[2019-10-17] MEDS: PIPERACILLIN/TAZOBACTAM 3,375 MG in SODIUM CHLORIDE 0.9% 100 ML IV SCH (18:42)
[2019-10-17] MEDS ORDERED: HYDROmorphone 2 MG/1 ML VIAL IV PRN (18:43)
[2019-10-17] MEDS: IBUPROFEN 800 MG TABLET PO PRN (21:55)
[2019-10-17] MEDS: DOCUSATE SODIUM 100 MG CAPSULE PO PRN (21:55)
[2019-10-18] MEDS: PIPERACILLIN/TAZOBACTAM 3,375 MG in SODIUM CHLORIDE 0.9% 100 ML IV SCH ×3 (02:08→17:40)
[2019-10-18 05:58] LABS: Immature Granulocytes % 0.4 %; Immature Granulocytes Absolute 0.02 #; Lymphocytes # 0.6 10*3/uL (1.4-4.0); Lymphocytes % 11.2 % (21.3-54.2); Mean Corpuscular HGB Conc 28.9 GM/DL (32-36); Mean Corpuscular Volume 90.1 FL (87-102); Mean Platelet Volume 11.2 FL (9.6-12.0); Monocytes % 6.3 % (1.7-12.7); Neutrophils % 82.1 % (38.7-73.9); Platelet Count 158 T/CUMM (130-400); Red Blood Count 1.92 MC/CUMM (3.8-5.5); Red Cell Distribution Width 17.1 % (9.3-17.3); White Blood Count 5.7 T/CUMM (4-12)
[2019-10-18 06:11] LABS: Hematocrit 17.3 VOL% (35.7-47.0)
[2019-10-18 06:29] LABS: Hypochromasia 2+; Lymphocytes 9 % (20-55); Microcytosis 1+; Ovalocytes Slight; Segmented Neutrophils 90 % (50-85); Total Cells Counted 100
[2019-10-18] MEDS ORDERED: SODIUM CHLORIDE 0.9% 1,000 ML IV PRN ×3 (07:33→20:32)
[2019-10-18] MEDS: METOCLOPRAMIDE 10 MG TABLET PO SCH (08:03)
[2019-10-18] MEDS: oxyCODONE/ACETAMINOPHEN 5-325 MG TABLET PO PRN ×3 (10:19→19:45)
[2019-10-18] MEDS: DOCUSATE SODIUM 100 MG CAPSULE PO PRN (12:38)
[2019-10-18] MEDS: IBUPROFEN 800 MG TABLET PO PRN (13:20)
[2019-10-19] MEDS: oxyCODONE/ACETAMINOPHEN 5-325 MG TABLET PO PRN ×3 (00:29→14:48)
[2019-10-19] MEDS ORDERED: SIMETHICONE CHEW 125 MG TABLET PO PRN (00:30)
[2019-10-19] MEDS ORDERED: SIMETHICONE CHEW 80 MG TABLET PO PRN (00:36)
[2019-10-19] MEDS: MAGNESIUM HYDROXIDE SUSP 30 ML UDCUP PO PRN ×2 (00:41→09:06)
[2019-10-19] MEDS: METOCLOPRAMIDE 10 MG TABLET PO SCH ×4 (00:41→17:40)
[2019-10-19] MEDS: IBUPROFEN 800 MG TABLET PO PRN ×2 (00:44→14:47)
[2019-10-19] MEDS: PIPERACILLIN/TAZOBACTAM 3,375 MG in SODIUM CHLORIDE 0.9% 100 ML IV SCH ×3 (02:20→17:50)
[2019-10-19 04:55] LABS: Hematocrit 25.6 VOL% (35.7-47.0); Hemoglobin 7.9 GM/DL (12.0-16.0); Immature Granulocytes % 0.5 %; Immature Granulocytes Absolute 0.02 #; Lymphocytes # 0.9 10*3/uL (1.4-4.0); Lymphocytes % 21.8 % (21.3-54.2); Mean Corpuscular HGB Conc 30.9 GM/DL (32-36); Mean Corpuscular Volume 91.8 FL (87-102); Mean Platelet Volume 12.2 FL (9.6-12.0); Monocytes % 10.5 % (1.7-12.7); Neutrophils % 67.2 % (38.7-73.9); Platelet Count 110 T/CUMM (130-400); Red Blood Count 2.79 MC/CUMM (3.8-5.5); Red Cell Distribution Width 16.5 % (9.3-17.3); White Blood Count 3.9 T/CUMM (4-12)
[2019-10-19 05:13] LABS: Hypochromasia 1+; Microcytosis 1+; Tear Drop Cells Slight
[2019-10-19 05:14] LABS: Ovalocytes Slight; Platelet Estimate Decreased; Polychromasia Slight
[2019-10-19] MEDS: IRON (CARBONYL)/VIT C/B12/FA TABLET PO SCH ×2 (09:06→20:23)
[2019-10-19] MEDS: DOCUSATE SODIUM 100 MG CAPSULE PO PRN (09:06)
[2019-10-19] MEDS ORDERED: METOPROLOL TARTRATE 50 MG TABLET PO SCH (12:00)
[2019-10-19 14:09] LABS: Hematocrit 26.5 VOL% (35.7-47.0); Hemoglobin 8.3 GM/DL (12.0-16.0)
[2019-10-19] MEDS ORDERED: SODIUM CHLORIDE 0.9% 1,000 ML IV PRN ×3 (16:28→18:58)
[2019-10-19 17:02] LABS: Hemoglobin 7.2 GM/DL (12.0-16.0)
[2019-10-19] MEDS ORDERED: SODIUM CHLORIDE 0.9% 1,000 ML IV ONE (19:00)
[2019-10-19] MEDS ORDERED: LACTATED RINGERS 1,000 ML IV ONE (21:04)
[2019-10-19] MEDS: LACTATED RINGERS 1,000 ML IV SCH (22:29)
[2019-10-19 22:36] LABS: Immature Granulocytes % 0.5 %; Immature Granulocytes Absolute 0.02 #; Lymphocytes # 0.7 10*3/uL (1.4-4.0); Lymphocytes % 16.6 % (21.3-54.2); Mean Corpuscular HGB Conc 31.1 GM/DL (32-36); Mean Corpuscular Volume 91.7 FL (87-102); Mean Platelet Volume 11.2 FL (9.6-12.0); Monocytes % 7.9 % (1.7-12.7); Platelet Count 128 T/CUMM (130-400); Red Blood Count 1.44 MC/CUMM (3.8-5.5); Red Cell Distribution Width 16.9 % (9.3-17.3)
[2019-10-19 22:39] LABS: INR 1.3; PT Patient Result 13.6 SECS (9.8-11.9); Partial Thromboplastin Time 31.6 SECS (23.9-33.8)
[2019-10-19 22:41] LABS: Alanine Aminotransferase < 6 U/L (13-56); Albumin 1.3 G/DL (3.4-5.0); Alkaline Phosphatase 14 U/L (45-117); Aspartate Amino Transferase 18 U/L (0-37); Blood Urea Nitrogen 7 MG/DL (7-18); Calcium 6.8 MG/DL (8.5-10.1); Estimated Glom Filtration Rate 124 ML/MIN; Free T4 (Free Thyroxine) 0.95 NG/DL (0.76-1.46); Glucose 89 MG/DL (74-106); Osmolality,Calculated 273.5 MOS/KG (273-304); Total Protein 3.2 G/DL (6.4-8.3)
[2019-10-19 22:42] LABS: Hematocrit 13.2 VOL% (35.7-47.0); Hemoglobin 4.1 GM/DL (12.0-16.0)
[2019-10-19] MEDS ORDERED: ALBUMIN 5% 25 GM in PREMIX 1 EACH IV ONE (23:00)
[2019-10-19] MEDS ORDERED: methylPREDNISolone SOD SUC 125 MG/2 ML VIAL IV ONE (23:22)
[2019-10-19] MEDS ORDERED: ACETAMINOPHEN 325 MG TABLET PO ONE (23:29)
[2019-10-19] MEDS ORDERED: diphenhydrAMINE CAP 25 MG CAPSULE PO ONE (23:32)
[2019-10-20] MEDS ORDERED: DEXAMETHASONE 10 MG/1 ML VIAL IV ONE
[2019-10-20 00:03] LABS: Haptoglobin < 8.0 MG/DL (30-200)
[2019-10-20] MEDS: METOCLOPRAMIDE 10 MG TABLET PO SCH ×4 (00:33→22:38)
[2019-10-20] MEDS: PIPERACILLIN/TAZOBACTAM 3,375 MG in SODIUM CHLORIDE 0.9% 100 ML IV SCH ×3 (04:19→18:33)
[2019-10-20 04:20] LABS: Immature Granulocytes % 0.5 %; Immature Granulocytes Absolute 0.02 #; Lymphocytes # 0.5 10*3/uL (1.4-4.0); Lymphocytes % 10.7 % (21.3-54.2); Mean Platelet Volume 10.9 FL (9.6-12.0); Monocytes % 2.1 % (1.7-12.7); NRBC # 0.02 10*3/uL; Neutrophils % 86.7 % (38.7-73.9); Platelet Count 115 T/CUMM (130-400); Red Blood Count 2.15 MC/CUMM (3.8-5.5); Red Cell Distribution Width 15.2 % (9.3-17.3); White Blood Count 4.4 T/CUMM (4-12)
[2019-10-20 04:26] LABS: Hemoglobin 6.4 GM/DL (12.0-16.0)
[2019-10-20 04:28] LABS: Anisocytosis 1+; Hypochromasia 1+; Platelet Estimate Adequate
[2019-10-20 04:52] LABS: Microcytosis 1+; Ovalocytes Slight; Platelet Estimate Decreased
[2019-10-20 04:53] LABS: Hypochromasia 1+
[2019-10-20] MEDS: LACTATED RINGERS 1,000 ML IV SCH ×5 (05:40→22:37)
[2019-10-20] MEDS: oxyCODONE/ACETAMINOPHEN 5-325 MG TABLET PO PRN ×3 (08:27→20:01)
[2019-10-20] MEDS: IRON (CARBONYL)/VIT C/B12/FA TABLET PO SCH (08:27)
[2019-10-20] MEDS: IBUPROFEN 800 MG TABLET PO PRN ×2 (11:00→21:24)
[2019-10-20 11:42] LABS: Hematocrit 32.3 VOL% (35.7-47.0)
[2019-10-20 11:45] LABS: Hemoglobin 10.4 GM/DL (12.0-16.0)
[2019-10-21] MEDS: PIPERACILLIN/TAZOBACTAM 3,375 MG in SODIUM CHLORIDE 0.9% 100 ML IV SCH (02:11)
[2019-10-21 07:50] VITALS: BP 131/73
[2019-10-21] MEDS: DOCUSATE SODIUM 100 MG CAPSULE PO PRN (07:53)
[2019-10-21] MEDS: oxyCODONE/ACETAMINOPHEN 5-325 MG TABLET PO PRN (07:53)
[2019-10-21] MEDS: METOCLOPRAMIDE 10 MG TABLET PO SCH (08:21)
[2019-10-21] MEDS: IRON (CARBONYL)/VIT C/B12/FA TABLET PO SCH (08:22)
[2019-10-21] MEDS: IBUPROFEN 800 MG TABLET PO PRN (10:19)
== END 2019-10-21 10:38 | disposition home or self-care (01) | DRG 742 ==
LOC: N.SDS 05:28 → N.SDSINP 05:33 → EDSTATUS 07:30 → N.OB 10:15 → N.ICU 10-19 19:15 → N.3E 10-20 16:19
PROVIDERS: ADMIT Specialist; ATTEND Specialist